=== PATIENT | male | born 1935 | race Hispanic/Latino ===

== ENCOUNTER → 2020-06-23 | Outpatient (CLI) | payer OTHER ==
[2020-06-23 14:38] LABS: BASOPHILS % (AUTO) 0.6 % (0.0-5.0); EOSINOPHILS % (AUTO) 3.1 % (0.0-8.0); HEMATOCRIT 29.9 % (42-54); LYMPHOCYTES % (AUTO) 25.7 % (21.0-51.0); MEAN CORPUSCULAR HEMOGLOBIN 31.4 pg (27.0-33.0); MEAN CORPUSCULAR HGB CONC 32.1 g/dL (32.0-36.0); MEAN CORPUSCULAR VOLUME 97.7 fL (79-99); MONOCYTES % (AUTO) 9.3 % (3.0-13.0); NEUTROPHILS % (AUTO) 61.1 % (40.0-77.0); PLATELET COUNT (AUTO) 174 K/uL (130-400); RED BLOOD CELL COUNT(AUTO) 3.06 MIL/uL (4.50-6.20); RED CELL DISTRIBUTION WIDTH 12.9 % (11.0-15.5); WHITE BLOOD COUNT (AUTO) 5.2 K/uL (4.8-10.8)
[2020-06-23 14:55] LABS: POTASSIUM 4.6 mmol/L (3.5-5.1)
[2020-06-23 14:56] LABS: INR 1.04 (0.85-1.15); PROTHROMBIN TIME 11.1 SEC (9.6-11.6)
== END | disposition home or self-care (01) ==
LOC: LAB 13:34
PROVIDERS: ATTEND Family Medicine
DX: I65.29 Occlusion and stenosis of unspecified carotid artery (principal); Z20.828 Contact with and (suspected) exposure to other viral communicable diseases
CPT/HCPCS: 36415; 80048; 85025; 85610; 85730; C9803; U0003

== ENCOUNTER → 2020-07-04 | Outpatient (CLI) | payer OTHER ==
[~2020-07-04] MED LIST: IOHEXOL-350 75 ML VIAL IV ONE
== END | disposition home or self-care (01) ==
LOC: RAH 08:58
PROVIDERS: ATTEND Family Medicine
DX: I65.23 Occlusion and stenosis of bilateral carotid arteries (principal)
CPT/HCPCS: 70498; Q9967

== ENCOUNTER 2020-11-04 11:38 | Emergency (ER) | payer OTHER ==
[~2020-11-04 11:38] MED LIST changes: +AMLO-257 PO; +ASPI-1443 PO; +CLOP75TA32 PO; -IOHEXOL-350 75 ML VIAL IV ONE; +MULT-1367 PO; +RAMI10CA69 PO; +ROSU20TA31 PO
== END 2020-11-04 16:41 | disposition home or self-care (01) ==
LOC: EDH 11:38
DX: J02.9 Acute pharyngitis, unspecified (principal); L76.32 Postprocedural hematoma of skin and subcutaneous tissue following other procedure; I10 Essential (primary) hypertension; Z87.891 Personal history of nicotine dependence; Z98.890 Other specified postprocedural states
CPT/HCPCS: 93880

== ENCOUNTER 2021-02-22 13:35 | Emergency (ER) | payer OTHER ==
[~2021-02-22] VITALS: Ht 162.6 cm; Wt 65.8 kg
[2021-02-22 14:52] VITALS: BP 136/62
[2021-02-22 14:53] LABS: BASOPHILS % (AUTO) 0.1 % (0.0-5.0); HEMATOCRIT 29.7 % (42-54); LYMPHOCYTES % (AUTO) 7.7 % (21.0-51.0); MEAN CORPUSCULAR HEMOGLOBIN 30.4 pg (27.0-33.0); MEAN CORPUSCULAR VOLUME 95.2 fL (79-99); MONOCYTES % (AUTO) 10.3 % (3.0-13.0); NEUTROPHILS % (AUTO) 81.6 % (40.0-77.0); PLATELET COUNT (AUTO) 168 K/uL (130-400); RED BLOOD CELL COUNT(AUTO) 3.12 MIL/uL (4.50-6.20); RED CELL DISTRIBUTION WIDTH 13.6 % (11.0-15.5); WHITE BLOOD COUNT (AUTO) 9.5 K/uL (4.8-10.8)
[2021-02-22 15:05] LABS: CREATININE 1.1 mg/dL (0.5-1.5); POTASSIUM 4.4 mmol/L (3.5-5.1)
[2021-02-22 15:17] LABS: ALBUMIN 3.6 g/dL (3.5-5.0); BILIRUBIN,TOTAL 0.5 mg/dL (0.2-1.0); TOTAL PROTEIN, SERUM 7.6 g/dL (6.0-8.3)
[2021-02-22 15:19] LABS: B-TYPE NATRIURETIC PEPTIDE 308 pg/mL (0-100)
[2021-02-22 18:29] VITALS: BP 108/65
== END 2021-02-22 20:25 | disposition home or self-care (01) ==
LOC: EDH 13:35
DX: H91.22 Sudden idiopathic hearing loss, left ear (principal); R20.2 Paresthesia of skin; I10 Essential (primary) hypertension; Z79.82 Long term (current) use of aspirin; Z79.899 Other long term (current) drug therapy
CPT/HCPCS: 36415; 70450; 70544; 70547; 70551; 71045; 80053; 82550; 83880; 84484; 85025; 93005; 93880

== ENCOUNTER 2023-04-30 12:27 | Emergency (ER) | payer OTHER ==
[~2023-04-30] VITALS: Ht 172.7 cm; Wt 70.3 kg
[~2023-04-30 12:27] MED LIST changes: -ROSU20TA31 PO; +ROSU20TA73 PO
[2023-04-30] MEDS ORDERED: MORPHINE 4 MG SYG IM ONE (14:00)
[2023-04-30 15:35] VITALS: BP 145/87; PULSE 61; RESP 16; O2SAT 99
[2023-04-30] MEDS ORDERED: HYDROCODONE/ACETAMINOPHEN 5/325 MG TAB PO ONE (16:30)
[2023-04-30] MEDS ORDERED: KETOROLAC 15MG/ML VIAL (15MG/ML) IM ONE (16:30)
[2023-04-30] MEDS ORDERED: ACET-2079 PO (16:35)
== END 2023-04-30 16:53 | disposition home or self-care (01) ==
LOC: EDH 12:27
DX: S52.592A Other fractures of lower end of left radius, initial encounter for closed fracture (principal); I10 Essential (primary) hypertension; Z79.82 Long term (current) use of aspirin; Z79.899 Other long term (current) drug therapy; Z90.49 Acquired absence of other specified parts of digestive tract; Z98.890 Other specified postprocedural states; W01.0XXA Fall on same level from slipping, tripping and stumbling without subsequent striking against object, initial encounter; Y93.89 Activity, other specified; Y92.090 Kitchen in other non-institutional residence as the place of occurrence of the external cause; Y99.8 Other external cause status
CPT/HCPCS: 99285; 70450; 73110; 29125; 96372 ×2; J2270; J1885

== ENCOUNTER 2025-03-01 14:01 | Emergency (ER) | payer OTHER, MEDICARE ==
[~2025-03-01] VITALS: Ht 170.2 cm; Wt 70.3 kg
[~2025-03-01 14:01] MED LIST changes: +ACET-2079 PO; -RAMI10CA69 PO; +RAMI10CA76 PO; -ROSU20TA73 PO; +ROSU20TA98 PO
--- NOTE | 2025-03-01 14:37 | ERN ---
General Chief Complaint: Abdominal Pain Stated Complaint: ABDOMINAL PAIN Time Seen by MD: 14:05 Source: patient History of Present Illness Initial Comments Patient is a 89-year-old male coming in complaining of right lower quadrant pain. Per patient this pain has been ongoing for three weeks. He states that the pain began abruptly. And he also states that the pain waxes and wanes it is not associated with movement no fever or chills. Allergies: Coded Allergies: No Known Drug Allergies (Unverified Allergy, Unknown, 10/29/20) Home Meds Active Scripts Acetaminophen with Codeine (Acetaminophen-Cod #3 Tablet) 300 Mg-30 Mg Tablet, 1- 2 TAB PO Q6H PRN for PAIN, #20 TAB 0 Refills Prov:ZACKERY RATLIFF MD 04/30/23 Reported Medications Multivitamin (Multivitamin) 1 Each Tablet, 1 EACH PO DAILY, TAB 10/29/20 Aspirin (Aspirin EC) 81 Mg Tablet.dr, 81 MG PO QODAY, TAB 10/29/20 Amlodipine Besylate (Amlodipine Besylate) 5 Mg Tablet, 5 MG PO DAILY, TAB 10/29/20 Ramipril (Ramipril) 10 Mg Capsule, 10 MG PO DAILY, CAP 10/29/20 Rosuvastatin Calcium (Rosuvastatin Calcium) 20 Mg Tablet, 20 MG PO 2XWEEK, TAB 10/29/20 Clopidogrel Bisulfate (Clopidogrel) 75 Mg Tablet, 75 MG PO QODAY, TAB 10/29/20 Past Medical History Past Medical History: Heart Disease, Hypertension Past Surgical History: Appendectomy, Other Surgical History Other: CAROTID, HERNIA Family History Family History: Negative Social History Social History: Negative ROS Dictation CONSTITUTIONAL: No chills, no fever, no weakness, no diaphoresis, no malaise. HEAD/FACE: No signs of trauma. EENT: No eye pain, no blurred vision, no tearing, no double vision, no ear pain, no ear discharge, no nose pain, no nasal congestion, no throat pain, no throat swelling, no mouth pain. RESPIRATORY: No cough, no orthopnea, no SOB, no stridor, no wheezing. CARDIOVASCULAR: No chest pain, no edema, no palpitations, no syncope. GASTROINTESTINAL/ABDOMINAL: abdominal pain, no constipation, no diarrhea, no nausea, no vomiting. GENITOURINARY: No abnormal discharge, no dysuria, no frequent urination, no hematuria. No complaints of pain in the genitals. MUSCULOSKELETAL: No back pain, no gout, no joint pain, no joint swelling, no muscle pain, no muscle stiffness, no neck pain. INTEGUMENTARY: No change in color, no change in hair/nails, no dryness, no lesion, no lumps, no rash. NEUROLOGICAL/PSYCH: No anxiety, not depressed, no emotional problem, no headache, no numbness, no pre-existing deficit, no history of seizures, no tremors, no weakness. HEMATOLOGIC/LYMPHATIC: Not anemic, no history of blood clots, no apparent blee ding, no bruising, glands not swollen. All Systems Negative, Except as Noted. Physical Exam Physical Exam Dictation VITAL SIGNS: Reviewed. GENERAL APPEARANCE: Alert, oriented x3, no acute distress, HEAD AND FACE: Non-traumatic. EYES: PERRL, pink conjunctivas, eyelid no trauma, anterior chamber clear. EARS: Pinnas intact and no signs of trauma or erythema. Ear canals clear and no discharge. TMs no erythema. NOSE: No discharge, no bleeding. OROPHARYNX: Mouth normal, teeth no caries, tongue pink. Pharynx clear, no erythema. Tonsils no exudates, no abscesses noted. Mucous membrane moist. NECK: Supple, non-tender, no thyromegaly, no masses, no JVD, no bruits. BREAST: Deferred. CHEST: No tenderness, no crepitus, no paradoxical movement, no retractions. LUNGS: Clear, well-ventilated, symmetric, no rales, no wheezing, no rhonchi, no stridor, good breath sounds bilaterally. HEART: Regular rate, regular rhythm, no murmur, no gallops. VASCULAR: No peripheral edema. ABDOMEN: Soft, positive bowel sounds, nondistended, no guarding, right flank, right lower quadrant tender, no rebound, no masses no hepatomegaly, no splenomegaly, no Jackson's sign, no hernias. RECTAL: Deferred. GENITAL: Deferred. NEUROLOGICAL: Normal speech, gross motor function intact, gross sensory function intact. MUSCULOSKELETAL: Neck nontender, full range of motion, back nontender, full range of motion. EXTREMITIES: Nontender, full range of motion. SKIN: Color pink, dry, no turgor, no rash, no lacerations, no abrasions, no contusions. LYMPHATICS: Deferred. Results Laboratory and Microbiology Lab and Micro Result Laboratory Tests Test 03/01/25 14:28 03/01/25 14:38 Urine Color COLORLESS (YELLOW) Urine Appearance CLEAR (CLEAR) Urine pH 5.5 (5.0-8.0) Urine Specific [place] 1.009 (1.001-1.031) Urine Protein NEGATIVE mg/dL (NEGATIVE) Urine Glucose (UA) NEGATIVE mg/dL (NEGATIVE) Urine Ketones NEGATIVE mg/dL (NEGATIVE) Urine Occult Blood NEGATIVE (NEGATIVE) Urine Nitrate NEGATIVE (NEGATIVE) Urine Bilirubin NEGATIVE mg/dL (NEGATIVE) Urine Urobilinogen 0.2 mg/dL (0.2-1.0) Urine Leukocyte Esterase NEGATIVE [place]/uL White Blood Count 5.3 K/uL (4.8-10.8) Red Blood Count 3.33 MIL/uL (4.50-6.20) L Hemoglobin 10.3 g/dL (14.0-18.0) L Hematocrit 32.1 % (42-54) L Mean Corpuscular Volume 96.4 fL (79-99) Mean Corpuscular Hemoglobin 30.9 pg (27.0-33.0) Mean Corpuscular Hemoglobin Concent 32.1 g/dL (32.0-36.0) Red Cell Distribution Width 13.6 % (11.0-15.5) Platelet Count 212 K/uL (130-400) Mean Platelet Volume 10.5 fL (7.5-10.5) Immature Granulocyte % (Auto) 0.4 % (0-1) Neutrophils (%) (Auto) 59.9 % (40.0-77.0) Lymphocytes (%) (Auto) 23.9 % (21.0-51.0) Monocytes (%) (Auto) 10.5 % (3.0-13.0) Eosinophils (%) (Auto) 4.7 % (0.0-8.0) Basophils (%) (Auto) 0.6 % (0.0-5.0) Neutrophils # (Auto) 3.2 K/uL (1.8-7.7) Lymphocytes # (Auto) 1.3 K/uL (1.0-4.8) Monocytes # (Auto) 0.6 K/uL (0.1-1.0) Eosinophils # (Auto) 0.25 K/uL (0.00-0.70) Basophils # (Auto) 0.03 K/uL (0.00-0.20) Absolute Immature Granulocyte (auto 0.02 K/uL (0-1) Nucleated Red Blood Cells 0.0 % (0.0-0.19) Sodium Level 136 mmol/L (136-145) Potassium Level 4.3 mmol/L (3.5-5.1) Chloride Level 100 mmol/L (101-111) L Carbon Dioxide Level 30 mmol/L (21-32) Blood Urea Nitrogen 32 mg/dL (7-18) H Creatinine 1.2 mg/dL (0.5-1.3) Glomerular Filtration Rate Calc 58 mL/min (>90) Random Glucose 104 mg/dL (70-105) Total Calcium 9.0 mg/dL (8.5-10.1) Total Bilirubin 0.4 mg/dL (0.2-1.0) Aspartate Amino Transf (AST/SGOT) 18 U/L (10-37) Alanine Aminotransferase (ALT/SGPT) 22 U/L (12-78) Alkaline Phosphatase 71 U/L (50-136) Total Creatine Kinase 120 U/L (21-232) # Troponin I High Sensitivity 24 ng/L (4-75) Total Protein 7.5 g/dL (6.0-8.3) Albumin 3.6 g/dL (3.5-5.0) Lipase 74 U/L (16-77) Labs Reviewed?: Yes EKG/XRAY/US/CT/MRI EKG Comment 03/01/2025 time 2:20 p.m. Ventricular rate [address] [place] [address] wave elevation or depression Ultrasound Comment [place] [address] [place] [address] IMAGING REPORT Signed PATIENT: NIKITA SMILEY MR#: [id number] : 1935 SEX: M AGE: 89 LOCATION: [facility] ORDER [id number] STATUS: REG ER REPORT#: [id number] SERVICE 143 REASON: ruq pain ORDERING PHYSICIAN: CARMENCITA DEL VALLE MD PROCEDURE: ABDRUQLTD - US ABDOMINAL RUQ\LTD EXAM: US Abdomen, Right Upper Quadrant. CLINICAL HISTORY: ruq pain TECHNIQUE: Right upper quadrant sonography performed with image documentation. COMPARISON: None provided. FINDINGS: LIVER: Within normal limits in size and echogenicity. No mass. GALLBLADDER: Small gallstones, gallbladder sludge COMMON BILE DUCT: No dilation. PANCREAS: The visualized pancreas appears within normal limits. The distal pancreas is obscured by bowel gas. RIGHT KIDNEY: Unremarkable. Normal renal contours. No renal mass or calculus. No hydronephrosis. IMPRESSION: Small gallstones, gallbladder sludge /[place] DICTATED BY: JOHNATHON PARKER MD DATE: 03/01/251699 ELECTRONICALLY SIGNED BY: JOHNATHON PARKER MD DATE: 03/01/251699 [place] [address] IMAGING REPORT Signed PATIENT: NIKITA SMILEY MR#: [id number] : 1935 SEX: M AGE: 89 LOCATION: [facility] ORDER [id number] STATUS: [facility] REPORT#: [id number] SERVICE 1521 REASON: right upper qudrant pain/ r flank pain ORDERING PHYSICIAN: CARMENCITA DEL VALLE MD PROCEDURE: ABD PEL WO - CT ABDOMEN/PELVIS W/O CONTRAST EXAM: CT Abdomen and Pelvis Without IV contrast CLINICAL HISTORY: right upper qudrant pain/ r flank pain TECHNIQUE: Axial computed tomography images of the abdomen and pelvis without intravenous contrast. CONTRAST: No IV contrast. COMPARISON: None provided. FINDINGS: LUNG BASES: Honeycombing with fibrotic streaks in the subpleural right lower lobe. There is mild dependent airspace disease within the bilateral lower lobes that is presumed to reflect atelectasis. No pleural effusions are seen. LIVER: Unremarkable. GALLBLADDER AND BILE DUCTS: The gallbladder appears within normal limits. No radioopaque gallstones are seen. No biliary ductal dilatation is evident. PANCREAS: Unremarkable. SPLEEN: Multiple small foci of calcified granulomas. ADRENAL GLANDS: Unremarkable. KIDNEYS, URETERS, AND BLADDER: The kidneys appear within normal limits. There is no hydronephrosis or hydroureter. No urinary calculi are seen. STOMACH AND BOWEL: Unremarkable appearance of the stomach and bowel. No evidence of bowel obstruction. No evidence suggesting enteritis or colitis. Fecal-loaded large bowel loops. APPENDIX: No evidence of acute appendicitis on CT examination. PERITONEUM: No free fluid. No free air. LYMPH NODES: No lymphadenopathy is evident. REPRODUCTIVE: Unremarkable as visualized. VASCULATURE: No evidence of abdominal aortic aneurysm. Atherosclerotic calcifications in the aorta, celiac, superior mesenteric, and iliac arteries and bilateral renal arteries, visceral branches, and segmental branches of the renal artery. (Recommendation: CT angiography of abdomen pelvis). BONES: No aggressive appearing osseous lesion. No acute osseous pathology evident. Moderate to severe degenerative changes in the spine. Grade I retrolisthesis of the L3 over the L4 and L4 over the L5 vertebra. IMPRESSION: 1. No acute intraabdominal or pelvic pathology. 2. 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 /[place] DICTATED BY: JOHNATHON PARKER MD DATE: 03/01/251840 ELECTRONICALLY SIGNED BY: JOHNATHON PARKER MD DATE: 03/01/251840 [facility] MDM: Differential diagnosis: Kidney stone, flank pain, Rationale: Tests considered and ordered secondary to shared decision making include: Previous outside records reviewed: Old ER visits. Risk of complication and/or morbidity or mortality of patient management: None Medications-Per medication reconciliation Need for hospitalization: Patient does not meet criteria for hospitalization. Need for emergency major/minor surgery: No Patient is a an 89-year-old male coming in complaining of right flank pain for many weeks. Imaging studies as well as laboratory workup within normal limits. I did advised him appropriate follow up with PCP for long-term management. ED Course Orders Procedure Category Date Status Time Cbc With Differential LAB 03/01/25 Complete 14:18 Comprehensive LAB 03/01/25 Complete Metabolic Panel 14:18 Troponin I High LAB 03/01/25 Complete Sensitivity 14:18 Urinalysis Profile LAB 03/01/25 Complete 14:18 12 Lead Ekg Tracing- EKG 03/01/25 Complete Technical 14:18 Creatine Kinase, Total LAB 03/01/25 Complete 14:18 Lipase LAB 03/01/25 Complete 14:18 Us Abdominal Ruq\Ltd US 03/01/25 Resulted 14:33 Ct Abdomen/Pelvis W/O CT 03/01/25 Resulted Contrast 15:21 Vital Signs Date Time Temp Pulse Resp B/P (MAP) Pulse Ox O2 Delivery O2 Flow Rate FiO2 03/01/25 17:44 98.1 56 16 154/56 98 Room Air* 0 21 03/01/25 14:25 98.1 54 16 156/54 98 Room Air* 0 21 03/01/25 14:02 98.2 52 159/52 99 Room Air DX & DISP Disposition: Discharge Departure Impression: Primary Impression: Abdominal wall pain Additional Impression: Muscle strain Condition: Stable Additional Instructions: FOLLOW-UP WITH PRIMARY CARE PROVIDER IN 1 TO 2 DAYS. TAKE MEDICATIONS DIRECTED HERE IN THE EMERGENCY ROOM. OKAY TO CONTINUE HOME MEDICATIONS UNLESS OTHERWISE DISCUSSED DURING YOUR VISIT IN THE EMERGENCY ROOM TODAY. RETURN TO YOUR NEAREST EMERGENCY ROOM IF SYMPTOMS WORSEN OR IF THERE IS NO IMPROVEMENT. CALL 911 IF YOU NEED IMMEDIATE ASSISTANCE. TAKE TYLENOL [id number] NEEDED AND IF NO CONTRAINDICATIONS ARE PRESENT. INCREASE ORAL HYDRATION. A W OUND CULTURE OR URINE CULTURE WAS ORDERED HERE IN THE EMERGENCY ROOM DEPARTMENT PLEASE FOLLOW-UP WITH PRIMARY CARE PROVIDER AND ADVISE THEM TO GET REPORTS FROM OUR FACILITY. IF YOU HAD ANY DAVID WRAP/SPLINTS THAT WERE APPLIED HERE, PLEASE DO NOT REMOVE THEM UNTIL YOU SEE YOUR PRIMARY CARE OR SPECIALTY. Referrals: Referrals: MERARI CHIANG MD (PCP) Time of Disposition: 18:04 CARMENCITA DEL VALLE MD Mar 01, 2025 14:37
[2025-03-01 14:46] LABS: APPEARANCE,URINE CLEAR (CLEAR); GLUCOSE, URINE (UA) NEGATIVE (NEGATIVE); LEUKOCYTE ESTERASE ,URINE NEGATIVE Leu/uL (NEGATIVE); NITRATE,URINE NEGATIVE (NEGATIVE); OCCULT BLOOD,URINE NEGATIVE (NEGATIVE)
[2025-03-01 14:50] LABS: ADD UA MICROSCOPIC NO
[2025-03-01 14:54] LABS: IMMATURE GRANULOCYTE ABSOLUTE 0.02 K/uL (0-1); NUCLEATED RED BLOOD CELLS 0.0 % (0.0-0.19); PLATELET COUNT (AUTO) 212 K/uL (130-400); RED BLOOD CELL COUNT(AUTO) 3.33 MIL/uL (4.50-6.20); RED CELL DISTRIBUTION WIDTH 13.6 % (11.0-15.5); WHITE BLOOD COUNT (AUTO) 5.3 K/uL (4.8-10.8)
[2025-03-01 15:13] LABS: CREATININE 1.2 mg/dL (0.5-1.3); GLOMERULAR FILTR. RATE CALC 58.0 mL/min (>90); GLUCOSE,RANDOM 104.0 mg/dL (70-105); SODIUM SERUM 136.0 mmol/L (136-145); UREA NITROGEN, BLOOD 32.0 mg/dL (7-18)
[2025-03-01 15:23] LABS: ASPARTATE AMINOTRANSFERASE 18.0 U/L (10-37); CREATINE KINASE, TOTAL 120.0 U/L (21-232); TOTAL PROTEIN, SERUM 7.5 g/dL (6.0-8.3)
--- NOTE | 2025-03-01 16:01 | HMCIMG ---
EXAM: US Abdomen, Right Upper Quadrant. CLINICAL HISTORY: ruq pain TECHNIQUE: Right upper quadrant sonography performed with image documentation. COMPARISON: None provided. FINDINGS: LIVER: Within normal limits in size and echogenicity. No mass. GALLBLADDER: Small gallstones, gallbladder sludge COMMON BILE DUCT: No dilation. PANCREAS: The visualized pancreas appears within normal limits. The distal pancreas is obscured by bowel gas. RIGHT KIDNEY: Unremarkable. Normal renal contours. No renal mass or calculus. No hydronephrosis. IMPRESSION: Small gallstones, gallbladder sludge /[place]
--- NOTE | 2025-03-01 16:07 | EKG ---
[facility] Test Date: 2025-03-01 Test Time: 14:20:55 Pat Name: NIKITA BALJIT Department: [facility] Patient ID: [facility] [id number] Room: Gender: M Broacher: [id number] : 1935 Requested By: CARMENCITA DEL VALLE Order Number: [id number] Reading MD: Alexi Nieto Measurements Intervals [place] Rate: 48 P: 51 AK: 158 QRS: 85 QRSD: 142 T: 32 QT: 462 QTc: 414 Interpretive Statements Bradycardia with irregular rate Right bundle branch block Compared to ECG 02/22/2021 16:18:57 Right bundle-branch block now present Sinus rhythm no longer present Electronically Signed On 03-02-2025 16:37:46 CDT by Alexi Nieto Please click the below link to view image of tracing.
--- NOTE | 2025-03-01 17:42 | HMCIMG ---
EXAM: CT Abdomen and Pelvis Without IV contrast CLINICAL HISTORY: right upper qudrant pain/ r flank pain TECHNIQUE: Axial computed tomography images of the abdomen and pelvis without intravenous contrast. CONTRAST: No IV contrast. COMPARISON: None provided. FINDINGS: LUNG BASES: Honeycombing with fibrotic streaks in the subpleural right lower lobe. There is mild dependent airspace disease within the bilateral lower lobes that is presumed to reflect atelectasis. No pleural effusions are seen. LIVER: Unremarkable. GALLBLADDER AND BILE DUCTS: The gallbladder appears within normal limits. No radioopaque gallstones are seen. No biliary ductal dilatation is evident. PANCREAS: Unremarkable. SPLEEN: Multiple small foci of calcified granulomas. ADRENAL GLANDS: Unremarkable. KIDNEYS, URETERS, AND BLADDER: The kidneys appear within normal limits. There is no hydronephrosis or hydroureter. No urinary calculi are seen. STOMACH AND BOWEL: Unremarkable appearance of the stomach and bowel. No evidence of bowel obstruction. No evidence suggesting enteritis or colitis. Fecal-loaded large bowel loops. APPENDIX: No evidence of acute appendicitis on CT examination. PERITONEUM: No free fluid. No free air. LYMPH NODES: No lymphadenopathy is evident. REPRODUCTIVE: Unremarkable as visualized. VASCULATURE: No evidence of abdominal aortic aneurysm. Atherosclerotic calcifications in the aorta, celiac, superior mesenteric, and iliac arteries and bilateral renal arteries, visceral branches, and segmental branches of the renal artery. (Recommendation: CT angiography of abdomen pelvis). BONES: No aggressive appearing osseous lesion. No acute osseous pathology evident. Moderate to severe degenerative changes in the spine. Grade I retrolisthesis of the L3 over the L4 and L4 over the L5 vertebra. IMPRESSION: 1. No acute intraabdominal or pelvic pathology. 2. 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 /[place]
[2025-03-01 17:44] VITALS: BP 154/56; PULSE 56; RESP 16; TEMP 98.1; O2SAT 98
== END 2025-03-01 18:13 | disposition home or self-care (01) ==
LOC: EDH 14:01
DX: S39.011A Strain of muscle, fascia and tendon of abdomen, initial encounter (principal); R10.31 Right lower quadrant pain; I11.9 Hypertensive heart disease without heart failure; Z90.49 Acquired absence of other specified parts of digestive tract; X58.XXXA Exposure to other specified factors, initial encounter; Y93.89 Activity, other specified; Y92.89 Other specified places as the place of occurrence of the external cause; Y99.8 Other external cause status
CPT/HCPCS: 36415; 74176; 76705; 80053; 81003; 82550; 83690; 84484; 85025; 93005; 99284